=== PATIENT | male | born 1995 | race Two or more races ===

== ENCOUNTER 2021-12-16 13:05 | Inpatient (IN) | payer MEDICARE, MEDICAID ==
[~2021-12-16] VITALS: Ht 177.8 cm; Wt 104.9 kg
[2021-12-24 23:45] VITALS: BP 119/62
[2021-12-25] MEDS ORDERED: ZIPRASIDONE HCL 20 MG CAPSULE PO PRN (01:45)
[2021-12-25] MEDS ORDERED: HALOPERIDOL 5 MG TABLET PO PRN (01:45)
[2021-12-25] MEDS ORDERED: HALOPERIDOL LACTATE 5 MG/ML VIAL ONE (06:14)
[2021-12-25] MEDS ORDERED: DiphenhydrAMINE HCL 50 MG/ML VIAL ONE (06:14)
[2021-12-25] MEDS ORDERED: DiphenhydrAMINE HCL 50 MG/ML VIAL IM ONE ×2 (06:15→14:00)
[2021-12-25] MEDS ORDERED: LORazepam 2 MG/ML VIAL IM ONE ×2 (06:15→14:00)
[2021-12-25] MEDS ORDERED: HALOPERIDOL LACTATE 5 MG/ML VIAL IM ONE ×2 (06:15→14:00)
[2021-12-25] MEDS ORDERED: LORazepam 2 MG/ML VIAL ONE (06:18)
[2021-12-25] MEDS: HALOPERIDOL 5 MG TABLET PO PRN (22:35)
[2021-12-25] MEDS: LORazepam 1 MG TABLET PO PRN (22:35)
[2021-12-25] MEDS: OLANZapine 10 MG TABLET PO SCH (22:35)
[2021-12-26] MEDS: HALOPERIDOL 5 MG TABLET PO PRN ×2 (08:06→17:32)
[2021-12-26] MEDS: LORazepam 1 MG TABLET PO PRN ×2 (08:06→17:32)
[2021-12-26] MEDS ORDERED: IBUPROFEN 400 MG TABLET PO PRN (08:15)
[2021-12-26] MEDS ORDERED: GuaiFENesin/D-METHORPHAN [SUGAR-FREE] 200-20MG/10 ML SYRUP UDCUP PO PRN (08:15)
[2021-12-26] MEDS ORDERED: DOCUSATE SODIUM 100 MG CAPSULE PO PRN (08:15)
[2021-12-26] MEDS ORDERED: LOPERAMIDE HCL 2 MG CAPSULE PO PRN (08:15)
[2021-12-26] MEDS ORDERED: ONDANSETRON HCL 4 MG TABLET PO PRN (08:15)
[2021-12-26] MEDS ORDERED: PETROLATUM,WHITE 28 GM JELLY TP PRN (08:15)
[2021-12-26] MEDS ORDERED: MAGNESIUM HYDROXIDE SUSPENSION 30 ML UDCUP PO PRN (08:15)
[2021-12-26] MEDS ORDERED: ACETAMINOPHEN 325 MG TABLET PO PRN (08:15)
[2021-12-26] MEDS ORDERED: NICOTINE 14 MG/24 HOUR PATCH TD PRN (08:15)
[2021-12-26] MEDS ORDERED: MAG HYDROX/AL HYDROX/SIMETH ES 30 ML SUSPENSION UDCUP PO PRN (08:15)
[2021-12-26] MEDS ORDERED: ALBUTEROL SULFATE HFA 90 MCG/PUFF 8 GM INHALER IH PRN (08:15)
[2021-12-26] MEDS ORDERED: CloNIDine HCL 0.1 MG TABLET PO PRN (08:15)
[2021-12-26] MEDS ORDERED: LORazepam 2 MG/ML VIAL IM ONE (08:30)
[2021-12-26] MEDS ORDERED: HALOPERIDOL LACTATE 5 MG/ML VIAL IM ONE (08:30)
[2021-12-26] MEDS ORDERED: DiphenhydrAMINE HCL 50 MG/ML VIAL IM ONE (08:30)
[2021-12-26 16:12] VITALS: BP 151/97
[2021-12-26 17:32] VITALS: BP 149/88
[2021-12-26] MEDS: OLANZapine 10 MG TABLET PO SCH (21:37)
[2021-12-27] MEDS: ZOLPIDEM TARTRATE 10 MG TABLET PO PRN (03:02)
[2021-12-27] MEDS: LORazepam 1 MG TABLET PO PRN ×2 (04:24→17:56)
[2021-12-27] MEDS: HALOPERIDOL 5 MG TABLET PO PRN ×2 (04:24→17:56)
[2021-12-27 16:04] VITALS: BP 108/79
[2021-12-27] MEDS: OLANZapine 10 MG TABLET PO SCH (20:34)
[2021-12-28] MEDS: LORazepam 1 MG TABLET PO PRN ×2 (01:28→18:45)
[2021-12-28] MEDS: HALOPERIDOL 5 MG TABLET PO PRN ×2 (01:28→18:45)
[2021-12-28 08:27] VITALS: BP 137/71
[2021-12-28 16:11] VITALS: BP_SYST 100; BP_SYST 147; BP_DIAS 64; BP_DIAS 93
[2021-12-28] MEDS: OLANZapine 10 MG TABLET PO SCH (20:19)
[2021-12-29 08:18] VITALS: BP 132/93
[2021-12-29] MEDS: HALOPERIDOL 5 MG TABLET PO PRN (17:45)
[2021-12-29] MEDS: LORazepam 1 MG TABLET PO PRN (17:45)
[2021-12-29] MEDS: OLANZapine 10 MG TABLET PO SCH (20:17)
[2021-12-30] MEDS: LORazepam 1 MG TABLET PO PRN ×3 (08:50→21:48)
[2021-12-30] MEDS: HALOPERIDOL 5 MG TABLET PO PRN ×3 (08:51→21:48)
[2021-12-30] MEDS ORDERED: HALOPERIDOL LACTATE 5 MG/ML VIAL IM ONE (10:15)
[2021-12-30] MEDS ORDERED: LORazepam 2 MG/ML VIAL IM ONE (10:15)
[2021-12-30] MEDS ORDERED: DiphenhydrAMINE HCL 50 MG/ML VIAL IM ONE (10:15)
[2021-12-30] MEDS ORDERED: LORazepam 2 MG/ML VIAL ONE (10:17)
[2021-12-30] MEDS ORDERED: HALOPERIDOL LACTATE 5 MG/ML VIAL ONE (10:17)
[2021-12-30] MEDS ORDERED: DiphenhydrAMINE HCL 50 MG/ML VIAL ONE (10:17)
[2021-12-30 18:46] LABS: COVID AG,FIA SOURCE NASAL SWAB
[2021-12-30] MEDS: OLANZapine 10 MG TABLET PO SCH (21:06)
[2021-12-30] MEDS: ZOLPIDEM TARTRATE 10 MG TABLET PO PRN (21:06)
[2021-12-31] MEDS: HALOPERIDOL 5 MG TABLET PO PRN ×3 (08:03→18:12)
[2021-12-31] MEDS: LORazepam 1 MG TABLET PO PRN ×3 (08:03→18:12)
[2021-12-31 08:17] VITALS: BP 131/82
[2021-12-31 16:07] VITALS: BP 124/76
[2021-12-31 20:05] VITALS: BP 119/76
[2021-12-31] MEDS: OLANZapine 10 MG TABLET PO SCH (20:27)
[2022-01-01] MEDS: LORazepam 1 MG TABLET PO PRN ×2 (02:10→20:15)
[2022-01-01] MEDS: ZOLPIDEM TARTRATE 10 MG TABLET PO PRN (02:10)
[2022-01-01] MEDS: HALOPERIDOL 5 MG TABLET PO PRN ×2 (03:17→20:15)
[2022-01-01] MEDS: VALPROIC ACID 250 MG/5 ML SOLUTION UDCUP PO SCH ×2 (08:14→20:22)
[2022-01-01 08:20] VITALS: BP 122/81
[2022-01-01 09:35] LABS: ALANINE AMINOTRANSFERASE 39 U/L (12-78); ALBUMIN 3.4 g/dL (3.4-5.0); ALKALINE PHOSPHATASE 68 U/L (46-116); ANION GAP 7 mmol/L (8-16); ASPARTATE AMINOTRANSFERASE 31 U/L (15-37); BILIRUBIN,TOTAL 0.3 mg/dL (0.1-1.0); CALCIUM, TOTAL 8.7 mg/dL (8.8-10.5); CARBON DIOXIDE 26 mmol/L (22-29); CHLORIDE 103 mmol/L (98-107); CREATININE 0.87 mg/dL (0.60-1.30); GLUCOSE,RANDOM 142 mg/dL (70-110); POTASSIUM 4.2 mmol/L (3.5-5.1); SODIUM SERUM 136 mmol/L (136-145); TOTAL PROTEIN, SERUM 6.8 g/dL (6.4-8.2); UREA NITROGEN, BLOOD 13 mg/dL (7-18)
[2022-01-01 09:44] LABS: GLOMERULAR FILTR. RATE CALC > 60 mL/min (>60)
[2022-01-01] MEDS: OLANZapine 10 MG TABLET PO SCH (20:22)
[2022-01-02] MEDS: HALOPERIDOL 5 MG TABLET PO PRN ×2 (04:30→15:16)
[2022-01-02] MEDS: LORazepam 1 MG TABLET PO PRN ×2 (04:30→15:16)
[2022-01-02 08:12] VITALS: BP 150/89
[2022-01-02] MEDS: VALPROIC ACID 250 MG/5 ML SOLUTION UDCUP PO SCH ×2 (09:00→20:22)
[2022-01-02 16:13] VITALS: BP 129/84
[2022-01-02] MEDS: OLANZapine 10 MG RAPDIS TABLET PO SCH (20:22)
[2022-01-03] MEDS: HALOPERIDOL 5 MG TABLET PO PRN ×4 (02:18→15:56)
[2022-01-03] MEDS: LORazepam 1 MG TABLET PO PRN ×4 (02:18→15:56)
[2022-01-03] MEDS: VALPROIC ACID 250 MG/5 ML SOLUTION UDCUP PO SCH ×2 (09:00→20:18)
[2022-01-03 16:03] VITALS: BP 138/96
[2022-01-03] MEDS: OLANZapine 10 MG RAPDIS TABLET PO SCH (20:18)
[2022-01-04] MEDS: LORazepam 1 MG TABLET PO PRN ×3 (01:11→15:42)
[2022-01-04] MEDS: HALOPERIDOL 5 MG TABLET PO PRN ×4 (01:12→22:01)
[2022-01-04] MEDS: VALPROIC ACID 250 MG/5 ML SOLUTION UDCUP PO SCH ×2 (07:57→20:02)
[2022-01-04 08:39] LABS: BASOPHILS % (AUTO) 1.1 % (0.0-2.0); EOSINOPHILS % (AUTO) 3.6 % (1.0-6.0); HEMATOCRIT 38.5 % (41-53); HEMOGLOBIN 12.8 g/dL (13.5-17.5); MEAN CORPUSCULAR HEMOGLOBIN 31.7 pg (26.0-34.0); MEAN CORPUSCULAR HGB CONC 33.2 G/dL (31.0-37.0); MEAN CORPUSCULAR VOLUME 96 fL (80-100); MONOCYTES # (AUTO) 0.6 K/uL (0.1-1.0); MONOCYTES % (AUTO) 7.3 % (2.0-9.0); NEUTROPHILS # (AUTO) 5.3 K/uL (1.8-7.7); PLATELET COUNT (AUTO) 239 K/uL (150-450); RED BLOOD CELL COUNT(AUTO) 4.03 MIL/uL (4.50-5.90); RED CELL DISTRIBUTION WIDTH 15.6 % (11.5-14.5)
[2022-01-04 09:13] LABS: CHOL/HDL RATIO 4.6 (4.2-7.3)
[2022-01-04 16:05] VITALS: BP 121/78
[2022-01-04] MEDS: OLANZapine 10 MG RAPDIS TABLET PO SCH (20:02)
[2022-01-04] MEDS: ZOLPIDEM TARTRATE 10 MG TABLET PO PRN (22:01)
[2022-01-05] MEDS: LORazepam 1 MG TABLET PO PRN ×5 (05:28→14:02)
[2022-01-05] MEDS: HALOPERIDOL 5 MG TABLET PO PRN ×4 (05:29→14:02)
[2022-01-05] MEDS: VALPROIC ACID 250 MG/5 ML SOLUTION UDCUP PO SCH ×2 (07:43→21:00)
[2022-01-05 08:00] VITALS: BP 134/81
[2022-01-05 16:00] VITALS: BP 104/60
[2022-01-05] MEDS: OLANZapine 10 MG RAPDIS TABLET PO SCH (21:00)
[2022-01-06 06:44] LABS: COVID AG,FIA SOURCE NASAL SWAB
[2022-01-06] MEDS: VALPROIC ACID 250 MG/5 ML SOLUTION UDCUP PO SCH ×2 (09:00→20:29)
[2022-01-06] MEDS: LORazepam 1 MG TABLET PO PRN (16:04)
[2022-01-06] MEDS: HALOPERIDOL 5 MG TABLET PO PRN ×2 (16:04→20:27)
[2022-01-06 16:24] VITALS: BP 120/84
[2022-01-06] MEDS: OLANZapine 10 MG RAPDIS TABLET PO SCH (20:26)
[2022-01-06] MEDS: ZOLPIDEM TARTRATE 10 MG TABLET PO PRN (20:27)
[2022-01-07] MEDS: LORazepam 1 MG TABLET PO PRN ×2 (07:55→15:24)
[2022-01-07] MEDS: HALOPERIDOL 5 MG TABLET PO PRN ×2 (07:55→15:24)
[2022-01-07] MEDS: VALPROIC ACID 250 MG/5 ML SOLUTION UDCUP PO SCH ×3 (07:55→21:04)
[2022-01-07] MEDS ORDERED: LORazepam 2 MG/ML VIAL ONE (09:52)
[2022-01-07] MEDS ORDERED: DiphenhydrAMINE HCL 50 MG/ML VIAL ONE (09:52)
[2022-01-07] MEDS ORDERED: LORazepam 2 MG/ML VIAL IM ONE (10:00)
[2022-01-07] MEDS ORDERED: DiphenhydrAMINE HCL 50 MG/ML VIAL IM ONE (10:00)
[2022-01-07] MEDS ORDERED: HALOPERIDOL LACTATE 5 MG/ML VIAL IM ONE (10:00)
[2022-01-07 20:08] VITALS: BP 130/69
[2022-01-07] MEDS: OLANZapine 10 MG RAPDIS TABLET PO SCH (20:56)
[2022-01-08 08:38] VITALS: BP 118/74
[2022-01-08] MEDS: LORazepam 1 MG TABLET PO PRN ×2 (08:39→12:46)
[2022-01-08] MEDS: HALOPERIDOL 5 MG TABLET PO PRN ×2 (08:39→12:46)
[2022-01-08] MEDS: VALPROIC ACID 250 MG/5 ML SOLUTION UDCUP PO SCH ×2 (08:46→20:18)
[2022-01-08] MEDS ORDERED: HALOPERIDOL LACTATE 5 MG/ML VIAL IM ONE (09:30)
[2022-01-08] MEDS ORDERED: LORazepam 2 MG/ML VIAL IM ONE (09:30)
[2022-01-08] MEDS ORDERED: DiphenhydrAMINE HCL 50 MG/ML VIAL IM ONE (09:30)
[2022-01-08] MEDS: OLANZapine 10 MG RAPDIS TABLET PO SCH (20:19)
[2022-01-09] MEDS: LORazepam 1 MG TABLET PO PRN ×3 (07:22→15:35)
[2022-01-09] MEDS: HALOPERIDOL 5 MG TABLET PO PRN ×3 (07:22→15:35)
[2022-01-09 08:03] VITALS: BP 132/74
[2022-01-09] MEDS: VALPROIC ACID 250 MG/5 ML SOLUTION UDCUP PO SCH ×2 (08:11→20:12)
[2022-01-09 16:29] VITALS: BP 120/74
[2022-01-09] MEDS: OLANZapine 10 MG RAPDIS TABLET PO SCH (20:11)
[2022-01-09] MEDS: ZOLPIDEM TARTRATE 10 MG TABLET PO PRN (20:55)
[2022-01-10] MEDS: LORazepam 1 MG TABLET PO PRN ×4 (04:23→18:11)
[2022-01-10] MEDS: HALOPERIDOL 5 MG TABLET PO PRN ×4 (04:23→18:11)
[2022-01-10] MEDS: VALPROIC ACID 250 MG/5 ML SOLUTION UDCUP PO SCH ×2 (09:03→20:33)
[2022-01-10 16:02] VITALS: BP 127/77
[2022-01-10] MEDS: OLANZapine 10 MG RAPDIS TABLET PO SCH (20:34)
[2022-01-11] MEDS: LORazepam 1 MG TABLET PO PRN ×3 (01:58→12:00)
[2022-01-11] MEDS: ZOLPIDEM TARTRATE 10 MG TABLET PO PRN (01:59)
[2022-01-11] MEDS: HALOPERIDOL 5 MG TABLET PO PRN ×2 (07:50→12:00)
[2022-01-11] MEDS: VALPROIC ACID 250 MG/5 ML SOLUTION UDCUP PO SCH ×2 (07:50→21:17)
[2022-01-11 08:16] VITALS: BP 126/82
[2022-01-11 16:00] VITALS: BP 132/88
[2022-01-11] MEDS: OLANZapine 10 MG RAPDIS TABLET PO SCH (21:18)
[2022-01-12] MEDS: LORazepam 1 MG TABLET PO PRN ×2 (08:05→14:19)
[2022-01-12] MEDS: HALOPERIDOL 5 MG TABLET PO PRN ×2 (08:05→14:19)
[2022-01-12] MEDS: VALPROIC ACID 250 MG/5 ML SOLUTION UDCUP PO SCH ×2 (08:06→21:10)
[2022-01-12 08:51] VITALS: BP 115/59
[2022-01-12 16:00] VITALS: BP 110/62
[2022-01-12] MEDS: OLANZapine 10 MG RAPDIS TABLET PO SCH (21:10)
[2022-01-13 01:14] VITALS: BP 101/64
[2022-01-13] MEDS: ZOLPIDEM TARTRATE 10 MG TABLET PO PRN ×2 (01:14→22:59)
[2022-01-13] MEDS: LORazepam 1 MG TABLET PO PRN ×5 (01:14→22:59)
[2022-01-13 06:39] LABS: COVID AG,FIA SOURCE NASAL SWAB
[2022-01-13] MEDS: HALOPERIDOL 5 MG TABLET PO PRN ×3 (07:38→15:39)
[2022-01-13 08:00] VITALS: BP 117/62
[2022-01-13] MEDS: VALPROIC ACID 250 MG/5 ML SOLUTION UDCUP PO SCH ×2 (08:11→20:30)
[2022-01-13 17:26] VITALS: BP 107/64
[2022-01-13] MEDS: OLANZapine 10 MG RAPDIS TABLET PO SCH (20:31)
[2022-01-14] MEDS: LORazepam 1 MG TABLET PO PRN ×3 (07:31→15:37)
[2022-01-14] MEDS: HALOPERIDOL 5 MG TABLET PO PRN ×3 (07:31→15:37)
[2022-01-14 08:34] VITALS: BP 103/76
[2022-01-14] MEDS: VALPROIC ACID 250 MG/5 ML SOLUTION UDCUP PO SCH ×2 (09:52→20:27)
[2022-01-14 16:18] VITALS: BP 134/85
[2022-01-14] MEDS: OLANZapine 10 MG RAPDIS TABLET PO SCH (20:27)
[2022-01-15] MEDS: LORazepam 1 MG TABLET PO PRN ×2 (02:38→12:23)
[2022-01-15] MEDS: ZOLPIDEM TARTRATE 10 MG TABLET PO PRN (02:39)
[2022-01-15] MEDS: VALPROIC ACID 250 MG/5 ML SOLUTION UDCUP PO SCH ×2 (08:02→20:23)
[2022-01-15 08:40] VITALS: BP 105/75
[2022-01-15] MEDS: HALOPERIDOL 5 MG TABLET PO PRN (12:23)
[2022-01-15 12:37] LABS: BASOPHILS % (AUTO) 0.8 % (0.0-2.0); EOSINOPHILS % (AUTO) 1.5 % (1.0-6.0); HEMOGLOBIN 12.9 g/dL (13.5-17.5); LYMPHOCYTES # (AUTO) 2.6 K/uL (1.0-4.8); LYMPHOCYTES % (AUTO) 28.4 % (22.0-44.0); MEAN CORPUSCULAR HEMOGLOBIN 31.8 pg (26.0-34.0); MEAN CORPUSCULAR HGB CONC 33.1 G/dL (31.0-37.0); MEAN CORPUSCULAR VOLUME 96 fL (80-100); MONOCYTES # (AUTO) 0.6 K/uL (0.1-1.0); MONOCYTES % (AUTO) 6.3 % (2.0-9.0); NEUTROPHILS # (AUTO) 5.8 K/uL (1.8-7.7); PLATELET COUNT (AUTO) 231 K/uL (150-450); RED BLOOD CELL COUNT(AUTO) 4.07 MIL/uL (4.50-5.90); RED CELL DISTRIBUTION WIDTH 15.2 % (11.5-14.5)
[2022-01-15 12:57] LABS: ANION GAP 4 mmol/L (8-16); CARBON DIOXIDE 27 mmol/L (22-29); CHLORIDE 104 mmol/L (98-107); CREATININE 0.88 mg/dL (0.60-1.30); GLUCOSE,RANDOM 113 mg/dL (70-110); SODIUM SERUM 135 mmol/L (136-145); UREA NITROGEN, BLOOD 17 mg/dL (7-18)
[2022-01-15 12:58] LABS: CALCIUM, TOTAL 8.2 mg/dL (8.8-10.5)
[2022-01-15 12:59] LABS: GLOMERULAR FILTR. RATE CALC > 60 mL/min (>60)
[2022-01-15 16:16] VITALS: BP 147/102
[2022-01-15] MEDS: OLANZapine 10 MG RAPDIS TABLET PO SCH (20:23)
[2022-01-16] MEDS: ZOLPIDEM TARTRATE 10 MG TABLET PO PRN (00:15)
[2022-01-16] MEDS: LORazepam 1 MG TABLET PO PRN ×3 (00:16→14:43)
[2022-01-16 08:08] VITALS: BP 150/87
[2022-01-16] MEDS: HALOPERIDOL 5 MG TABLET PO PRN ×2 (09:45→14:43)
[2022-01-16] MEDS: VALPROIC ACID 250 MG/5 ML SOLUTION UDCUP PO SCH ×2 (09:45→21:21)
[2022-01-16 16:00] VITALS: BP 107/63
[2022-01-16] MEDS: OLANZapine 10 MG RAPDIS TABLET PO SCH (21:21)
[2022-01-17] MEDS: VALPROIC ACID 250 MG/5 ML SOLUTION UDCUP PO SCH ×2 (08:28→20:53)
[2022-01-17] MEDS: HALOPERIDOL 5 MG TABLET PO PRN (08:28)
[2022-01-17] MEDS: LORazepam 1 MG TABLET PO PRN (08:28)
[2022-01-17 09:03] VITALS: BP 159/86
[2022-01-17 16:07] VITALS: BP 112/74
[2022-01-17] MEDS: PERPHENAZINE 8 MG TABLET PO SCH (17:05)
[2022-01-17] MEDS: OLANZapine 10 MG RAPDIS TABLET PO SCH (20:54)
[2022-01-18 08:22] VITALS: BP 153/90
[2022-01-18] MEDS: PERPHENAZINE 8 MG TABLET PO SCH ×2 (09:25→17:37)
[2022-01-18] MEDS: LORazepam 1 MG TABLET PO PRN (09:26)
[2022-01-18] MEDS: HALOPERIDOL 5 MG TABLET PO PRN (09:26)
[2022-01-18] MEDS: VALPROIC ACID 250 MG/5 ML SOLUTION UDCUP PO SCH ×2 (09:27→21:00)
[2022-01-18 16:16] VITALS: BP 102/62
[2022-01-18] MEDS: OLANZapine 10 MG RAPDIS TABLET PO SCH (21:00)
[2022-01-19] MEDS: VALPROIC ACID 250 MG/5 ML SOLUTION UDCUP PO SCH ×2 (07:38→20:55)
[2022-01-19] MEDS: PERPHENAZINE 8 MG TABLET PO SCH ×2 (07:39→17:17)
[2022-01-19 08:38] VITALS: BP 137/97
[2022-01-19] MEDS: LORazepam 1 MG TABLET PO PRN (10:10)
[2022-01-19] MEDS: HALOPERIDOL 5 MG TABLET PO PRN (10:10)
[2022-01-19 16:06] VITALS: BP 95/55
[2022-01-19] MEDS: OLANZapine 10 MG RAPDIS TABLET PO SCH (20:55)
[2022-01-20] MEDS: LORazepam 1 MG TABLET PO PRN ×2 (08:02→15:41)
[2022-01-20] MEDS: VALPROIC ACID 250 MG/5 ML SOLUTION UDCUP PO SCH ×2 (08:02→20:28)
[2022-01-20] MEDS: PERPHENAZINE 8 MG TABLET PO SCH ×2 (08:02→17:04)
[2022-01-20 16:35] VITALS: BP 105/63
[2022-01-20] MEDS: OLANZapine 10 MG RAPDIS TABLET PO SCH (20:26)
[2022-01-20] MEDS: ZOLPIDEM TARTRATE 10 MG TABLET PO PRN (20:28)
[2022-01-21 00:05] LABS: COVID AG,FIA SOURCE NASAL SWAB
[2022-01-21] MEDS: VALPROIC ACID 250 MG/5 ML SOLUTION UDCUP PO SCH ×2 (07:38→20:18)
[2022-01-21] MEDS: LORazepam 1 MG TABLET PO PRN (07:38)
[2022-01-21] MEDS: PERPHENAZINE 8 MG TABLET PO SCH ×2 (07:38→17:29)
[2022-01-21] MEDS: HALOPERIDOL 5 MG TABLET PO PRN (07:38)
[2022-01-21 08:47] VITALS: BP 124/74
[2022-01-21 16:08] VITALS: BP 113/83
[2022-01-21] MEDS: OLANZapine 10 MG RAPDIS TABLET PO SCH (20:17)
[2022-01-21] MEDS: ZOLPIDEM TARTRATE 10 MG TABLET PO PRN (20:18)
[2022-01-22 08:05] VITALS: BP 121/77
[2022-01-22 08:46] LABS: ANION GAP 4 mmol/L (8-16); CALCIUM, TOTAL 8.6 mg/dL (8.8-10.5); CARBON DIOXIDE 29 mmol/L (22-29); CHLORIDE 105 mmol/L (98-107); CREATININE 0.91 mg/dL (0.60-1.30); GLOMERULAR FILTR. RATE CALC > 60 mL/min (>60); GLUCOSE,RANDOM 135 mg/dL (70-110); POTASSIUM 4.5 mmol/L (3.5-5.1); SODIUM SERUM 138 mmol/L (136-145); UREA NITROGEN, BLOOD 13 mg/dL (7-18)
[2022-01-22] MEDS: VALPROIC ACID 250 MG/5 ML SOLUTION UDCUP PO SCH ×2 (09:13→20:29)
[2022-01-22] MEDS: PERPHENAZINE 8 MG TABLET PO SCH ×2 (09:14→16:04)
[2022-01-22 16:31] VITALS: BP 129/75
[2022-01-22] MEDS: OLANZapine 10 MG RAPDIS TABLET PO SCH (20:29)
[2022-01-23 08:00] VITALS: BP 112/74
[2022-01-23] MEDS: VALPROIC ACID 250 MG/5 ML SOLUTION UDCUP PO SCH ×2 (08:46→20:02)
[2022-01-23] MEDS: PERPHENAZINE 8 MG TABLET PO SCH ×2 (08:46→17:23)
[2022-01-23 16:00] VITALS: BP 103/57
[2022-01-23] MEDS: ZOLPIDEM TARTRATE 10 MG TABLET PO PRN (20:01)
[2022-01-23] MEDS: OLANZapine 10 MG RAPDIS TABLET PO SCH (20:02)
[2022-01-24 08:08] VITALS: BP 102/67
[2022-01-24] MEDS: PERPHENAZINE 8 MG TABLET PO SCH ×2 (08:41→17:21)
[2022-01-24] MEDS: VALPROIC ACID 250 MG/5 ML SOLUTION UDCUP PO SCH ×2 (08:41→20:38)
[2022-01-24 16:04] VITALS: BP 129/73
[2022-01-24] MEDS: OLANZapine 10 MG RAPDIS TABLET PO SCH (20:39)
[2022-01-24] MEDS: ZOLPIDEM TARTRATE 10 MG TABLET PO PRN (20:39)
[2022-01-25 08:10] VITALS: BP 123/78
[2022-01-25] MEDS: PERPHENAZINE 8 MG TABLET PO SCH ×2 (08:46→18:09)
[2022-01-25] MEDS: VALPROIC ACID 250 MG/5 ML SOLUTION UDCUP PO SCH ×2 (08:46→20:42)
[2022-01-25 16:08] VITALS: BP 122/77
[2022-01-25] MEDS: OLANZapine 10 MG RAPDIS TABLET PO SCH (20:42)
[2022-01-26 08:31] VITALS: BP 118/82
[2022-01-26] MEDS: VALPROIC ACID 250 MG/5 ML SOLUTION UDCUP PO SCH ×2 (10:43→20:16)
[2022-01-26] MEDS: PERPHENAZINE 8 MG TABLET PO SCH ×2 (10:43→16:18)
[2022-01-26 16:10] VITALS: BP 98/60
[2022-01-26] MEDS: OLANZapine 10 MG RAPDIS TABLET PO SCH (20:16)
[2022-01-27 07:41] LABS: COVID AG,FIA SOURCE NASAL SWAB
[2022-01-27] MEDS: PERPHENAZINE 8 MG TABLET PO SCH ×2 (08:35→16:11)
[2022-01-27] MEDS: VALPROIC ACID 250 MG/5 ML SOLUTION UDCUP PO SCH ×2 (08:35→20:42)
[2022-01-27 16:53] VITALS: BP 101/61
[2022-01-27] MEDS: OLANZapine 10 MG RAPDIS TABLET PO SCH (20:42)
[2022-01-28] MEDS: PERPHENAZINE 8 MG TABLET PO SCH ×2 (08:28→16:17)
[2022-01-28] MEDS: VALPROIC ACID 250 MG/5 ML SOLUTION UDCUP PO SCH ×2 (08:28→20:42)
[2022-01-28 08:40] VITALS: BP 125/77
[2022-01-28 12:02] VITALS: BP 125/77
[2022-01-28 16:05] VITALS: BP 123/77
[2022-01-28] MEDS: OLANZapine 10 MG RAPDIS TABLET PO SCH (20:42)
[2022-01-29 08:08] VITALS: BP 110/68
[2022-01-29] MEDS: PERPHENAZINE 8 MG TABLET PO SCH ×2 (08:27→16:11)
[2022-01-29] MEDS: VALPROIC ACID 250 MG/5 ML SOLUTION UDCUP PO SCH ×2 (08:27→21:34)
[2022-01-29 16:08] VITALS: BP 98/55
[2022-01-29] MEDS: OLANZapine 10 MG RAPDIS TABLET PO SCH (21:34)
[2022-01-30 08:12] VITALS: BP 121/81
[2022-01-30] MEDS: PERPHENAZINE 8 MG TABLET PO SCH ×2 (08:19→16:26)
[2022-01-30] MEDS: VALPROIC ACID 250 MG/5 ML SOLUTION UDCUP PO SCH ×2 (08:19→20:15)
[2022-01-30 16:02] VITALS: BP 130/80
[2022-01-30] MEDS: OLANZapine 10 MG RAPDIS TABLET PO SCH (20:15)
[2022-01-31 08:23] VITALS: BP 116/70
[2022-01-31] MEDS: PERPHENAZINE 8 MG TABLET PO SCH ×2 (08:36→16:25)
[2022-01-31] MEDS: VALPROIC ACID 250 MG/5 ML SOLUTION UDCUP PO SCH ×2 (08:36→20:17)
[2022-01-31 17:04] VITALS: BP 101/63
[2022-01-31] MEDS: OLANZapine 10 MG RAPDIS TABLET PO SCH (20:16)
[2022-02-01 08:21] VITALS: BP 117/68
[2022-02-01] MEDS: PERPHENAZINE 8 MG TABLET PO SCH ×2 (10:18→18:04)
[2022-02-01] MEDS: VALPROIC ACID 250 MG/5 ML SOLUTION UDCUP PO SCH ×2 (10:19→21:05)
[2022-02-01 16:35] VITALS: BP 99/64
[2022-02-01] MEDS: OLANZapine 10 MG RAPDIS TABLET PO SCH (21:05)
[2022-02-02 08:00] VITALS: BP 117/68
[2022-02-02] MEDS: PERPHENAZINE 8 MG TABLET PO SCH ×2 (08:53→17:18)
[2022-02-02] MEDS: VALPROIC ACID 250 MG/5 ML SOLUTION UDCUP PO SCH (08:53)
[2022-02-02] MEDS ORDERED: TRIL8 PO (11:19)
[2022-02-02] MEDS ORDERED: OLAN10TA26 PO (11:19)
[2022-02-02] MEDS ORDERED: VALP250S23 PO (11:19)
[2022-02-02 16:00] VITALS: BP 113/60
== END 2022-02-02 17:20 | disposition home or self-care (01) | DRG 885 ==
LOC: 3EX 12-24 23:45 → 3EC 12-27 09:05
PROVIDERS: ADMIT Psychiatry & Neurology Child & Adolescent Psychiatry; ATTEND Psychiatry & Neurology Child & Adolescent Psychiatry
DX: F20.0 Paranoid schizophrenia (principal); G47.00 Insomnia, unspecified; F10.10 Alcohol abuse, uncomplicated; Z91.81 History of falling; Z79.899 Other long term (current) drug therapy
CPT/HCPCS: 80048; 80053; 80061; 80164; 82550; 83036; 85025; 87081; G0378; J1200; J1630; J2060